=== PATIENT | female | born 1985 | race Caucasian/White ===

== ENCOUNTER 2018-08-10 03:30 | Observation (INO) ==
[2018-08-10] MEDS ORDERED: Naloxone 0.4 MG/ML INJ IVP PRN (05:48)
[2018-08-10] MEDS ORDERED: Acetaminophen 325 MG TABLET PO PRN (06:19)
[2018-08-10 06:23] LABS: Basophils % 0.1 %; Hematocrit 33.4 % (35.3-44.9); Hemoglobin 11.7 g/dL (11.5-15.4); Immature Granulocytes % 0.5 % (0-4); Lymphocytes # 0.4 K/mcL (0.6-4.6); Lymphocytes % 4.3 %; Mean Corpuscular Hemoglobin 32.6 pg (28.0-33.3); Mean Platelet Volume 9.9 fL (9.4-12.4); Monocytes # 0.2 K/mcL (0.0-1.3); Monocytes % 2.4 %; Neutrophils # 8.8 K/mcL (1.6-8.9); Platelet Count 120 K/mcL (140-400); Red Blood Count 3.59 M/mcL (3.82-4.97); Red Cell Distribution Width 12.8 % (11.5-14.5); Segmented Neutrophils % 92.7 %
[2018-08-10] MEDS ORDERED: traMADol 50 MG TABLET PO PRN ×2 (06:31→06:34)
[2018-08-10 06:45] LABS: Alanine Aminotransferase 14 Units/L (7-52); Albumin 3.7 g/dL (3.5-5.7); Albumin/Globulin Ratio 1.3 (1.1-2.2); Alkaline Phosphatase 85 Units/L (34-104); Aspartate Amino Transferase 15 Units/L (13-39); BUN/Creatinine Ratio 9 (6-26); Bilirubin,Total 0.6 mg/dL (0.3-1.0); Blood Urea Nitrogen 6 mg/dL (6-20); Calcium 8.4 mg/dL (8.6-10.3); Carbon Dioxide 18 mEq/L (23-29); Chloride 102 mEq/L (98-107); Globulin 2.9 g/dL (2.4-3.5); Glucose 211 mg/dL (70-105); Osmolality,Calculated 278 (280-300); Potassium 3.5 mEq/L (3.5-5.1); Sodium 132 mEq/L (136-145); Total Protein 6.6 g/dL (6.4-8.9); eGFR For Non-African Americans > 60 (> 60)
[2018-08-10 07:15] LABS: Adenovirus Not Detected (Not Detect); Bordetella Pertussis Not Detected (Not Detect); Chlamydophila pneumoniae Not Detected (Not Detect); Coronavirus 229E Not Detected (Not Detect); Coronavirus HKU1 Not Detected (Not Detect); Coronavirus NL63 Not Detected (Not Detect); Coronavirus OC43 Not Detected (Not Detect); Human Metapneumovirus Not Detected (Not Detect); Human Rhinovirus/Enterovirus Not Detected (Not Detect); Influenza A Subtype 2009 H1 Not Detected (Not Detect); Influenza A Untypeable Not Detected (Not Detect); Influenza B Not Detected (Not Detect); Mycoplasma pneumoniae Not Detected (Not Detect); Parainfluenza Virus 1 Not Detected (Not Detect); Parainfluenza Virus 2 Not Detected (Not Detect); Parainfluenza Virus 3 Not Detected (Not Detect); Parainfluenza Virus 4 Not Detected (Not Detect); Respiratory Syncytial Virus Not Detected (Not Detect)
--- NOTE | 2018-08-10 08:00 | Internal Med History&Physical ---
Date of Encounter: 08/10/18 Time of Encounter: 07:00 Internal Medicine - H&P: HPI Chief complaint: Shortness of breath Admitted From: Home Plans for Post Hospital Care: Home History of present illness: Ms. Melissa is a 33 year old female transferred from [facility] emergency room for shortness of breath. Past medical history is significant for asthma. Patient started to have fever, cough with greenish sputum, headache since 5 days ago. One day before her symptoms, her son was diagnosed as influenza and was treated with Tamiflu. Patient started to take Tamiflu since Saturday by herself. Patient has mild nausea no vomiting. Patient denies runny nose or sore throat. Patient complaint of left side pleural pain worsening on deep breath. Since last night she feels difficulty breathing and was sent to [facility] emergency room. Patient was found T 100.3, HR 103, RR 22, BP 123/67, SpO2 88% in RA. She was treated with DuoNeb, Solu-Medrol, and IV fluid. Chest x-ray in [facility] shows infiltrate. She was given azithromycin 500 mg and Rocephin 1 g. After treatment patient feels better, patient was transferred to our hospital for further management. Labs in [facility]: CBC 10.3/13/37.2/138, BMP 136/3.6/98/31/8/0.86/119, d-dimer 273 (negative), HCG negative, lactate 1.0, ABG 7.45/39/69/94% on 3L NC. Past Med Surg Social Fam HX - Past Medical History Medical history: asthma Psychiatric history: no psych history - Past Surgical History Surgical History: - Social History Smoking Status: Current every day smoker Packs per day: 1 Smokeless Tobacco Status: No Alcohol use: none Drug use: none - Family History Father Name: ailyn Living Status: Age at : 52 Cause of : ME Hx Family Cardiac Disorders: Yes (mi htn) Hx Family Endocrine Disorder: Yes (dm) Internal Medicine - H&P: Meds Famotidine [Pepcid] 20 mg PO DAILY #30 tablet 12/22/17 [Rx] Allergy/AdvReac Type Severity Reaction Status Date / Time Penicillins [PCN] Allergy See Verified 12/22/17 14:26 Comments All Systems PM: A 10-system review of systems was performed and is negative for pertinent findings except as documented above in the HPI. - Constitutional Vitals: Temp Pulse Resp BP Pulse Ox 97.9 F 69 18 115/76 91 08/10/18 07:43 08/10/18 07:43 08/10/18 07:43 08/10/18 07:43 08/10/18 07:43 Exam: Pt is AAO x 3, in NAD HEENT: NC/AT, PERRL Neck: Supple, no JVD, no LAD Lungs: CTA b/l Heart: S1S2, RRR Abd: Soft, nontender, BS present Ext: ROM wnl, no pedal edema Neuro: No focal deficit Internal Med - H&P Results - Labs CBC & Chem 7: 08/10/18 06:10 08/10/18 06:10 Labs: Short CBC 08/10/18 Range/Units 06:10 WBC 9.5 (4.3-11.1) K/mcL Hgb 11.7 (11.5-15.4) g/dL Hct 33.4 L (35.3-44.9) % Plt Count 120 L (140-400) K/mcL Neutrophils # 8.8 (1.6-8.9) K/mcL BMP 08/10/18 06:10 Sodium 132 L Potassium 3.5 Chloride 102 Carbon Dioxide 18 L BUN 6 Creatinine 0.64 Glucose 211 H Calcium 8.4 L Liver Function 08/10/18 Range/Units 06:10 Total Bilirubin 0.6 (0.3-1.0) mg/dL AST 15 (13-39) Units/L ALT 14 (7-52) Units/L Alkaline Phosphatase 85 (34-104) Units/L Albumin 3.7 (3.5-5.7) g/dL - Assessment and plan (1) Community acquired pneumonia Current Visit: Yes Status: Acute Assessment and plan: Patient has a cough with greenish sputum. Has a fever. Chest x-ray in [facility] suspect infiltrate. Patient complaining of left-sided pleural pain worsening on deep breath. D-dimer negative. - Consider community acquired pneumonia. - Continue azithromycin and Rocephin - Cough syrup and symptomatic treatment Qualifiers: Laterality: left Lung location: unspecified part of lung Qualified Code(s): J18.9 - Pneumonia, unspecified organism (2) Asthma exacerbation Current Visit: Yes Status: Acute Assessment and plan: History of asthma. Use abuse for inhaler at home, frequency less than once a week. Worsening shortness of breath with desaturation, improved after Solu- Medrol and DuoNeb. Consider asthma exacerbation - Patient has no wheezing at this point. - Continue DuoNeb scheduled and when necessary - Continue treat underlying pneumonia Qualifiers: Asthma severity: mild Asthma persistence: intermittent Qualified Code(s): J45.21 - Mild intermittent asthma with (acute) exacerbation (3) Influenza Current Visit: Yes Status: Suspected Assessment and plan: Patient's son has influenza diagnosed on Saturday. Patient has symptoms started from Saturday. Patient took Tamiflu for 4 days already. Influenza test negative in our hospital. - We will continue Tamiflu to finish a 5 day course considering patient has influenza contact and respiratory symptoms. (4) DVT prophylaxis Current Visit: Yes Status: Acute Assessment and plan: Patient is young and ambulating well. Denies OCP use. Will hold anticoagulation, encourage ambulation. (5) Hyperglycemia Current Visit: Yes Status: Acute Assessment and plan: Glucose 211, in [facility] 119, no history of diabetes. Possibly cause by Solumendral use in [facility]. (6) Tobacco abuse Current Visit: Yes Status: Acute Assessment and plan: Smoking cessation education. Patient said she does not need nicotine patch (7) Obesity Current Visit: Yes Status: Acute Assessment and plan: Lifestyle modification as outpatient Qualifiers: Obesity type: unspecified obesity type Body mass index: BMI 31.0-31.9 Qualified Code(s): E66.9 - Obesity, unspecified; Z68.31 - Body mass index (BMI) 31.0-31.9, adult - Time Spent With Patient Total time spent is greater than 50% in coordination of care (as documented) at patient's floor/unit and/or counseling patient: 40 minutes Greater than 35 minutes
[2018-08-10] MEDS: Ipratropium/Albuterol Neb 3 ML IH SCH ×5 (08:05→23:28)
[2018-08-10] MEDS ORDERED: Ipratropium/Albuterol Neb 3 ML IH PRN (08:15)
[2018-08-11] MEDS ORDERED: cefTRIAXone 1,000 MG in 0.9 % Sodium Chloride Mini Bag 100 ML IVPB SCH (02:00)
[2018-08-11] MEDS ORDERED: Azithromycin 500 MG in D5% in Water 250 ML IVPB SCH (02:00)
[2018-08-11] MEDS ORDERED: cefTRIAXone 1,000 MG in Water for inj. (sterile) 20 ML 10 ML IVP SCH (02:00)
[2018-08-11] MEDS: Ipratropium/Albuterol Neb 3 ML IH SCH ×3 (03:52→11:22)
[2018-08-11 04:50] LABS: Basophils % 0.1 %; Eosinophils % 0.1 %; Hematocrit 30.7 % (35.3-44.9); Hemoglobin 10.6 g/dL (11.5-15.4); Immature Granulocytes % 0.3 % (0-4); Lymphocytes # 1.9 K/mcL (0.6-4.6); Lymphocytes % 25.9 %; Mean Corpuscular HGB Conc 34.5 g/dL (31.6-35.5); Mean Corpuscular Hemoglobin 32.1 pg (28.0-33.3); Monocytes # 0.6 K/mcL (0.0-1.3); Monocytes % 7.9 %; Neutrophils # 4.7 K/mcL (1.6-8.9); Platelet Count 132 K/mcL (140-400); Segmented Neutrophils % 65.7 %
[2018-08-11 05:04] LABS: BUN/Creatinine Ratio 13 (6-26); Blood Urea Nitrogen 7 mg/dL (6-20); Calcium 8.9 mg/dL (8.6-10.3); Carbon Dioxide 23 mEq/L (23-29); Chloride 106 mEq/L (98-107); Glucose 125 mg/dL (70-105); Magnesium 2.1 mg/dL (1.6-2.6); Osmolality,Calculated 285 (280-300); Potassium 3.5 mEq/L (3.5-5.1); Sodium 138 mEq/L (136-145); eGFR For Non-African Americans > 60 (> 60)
[2018-08-11] MEDS: cefTRIAXone 1,000 MG in Water for inj. (sterile) 20 ML 10 ML IVP SCH ×2 (05:10→08:41)
[2018-08-11 05:26] LABS: Platelet Estimate Slight Decrease (Normal)
[2018-08-11 11:47] VITALS: BP 125/82
--- NOTE | 2018-08-11 13:00 | Discharge Summary ---
- NOTES TO OUTPATIENT PROVIDER Notes to Outpatient Provider: Follow up with PCP in one week. Please quit smoking. Orders not resulted at time of discharge: Pending orders 08/10/18 05:49 Culture,Sputum with Gram Stain [] Routine 08/10/18 06:10 Culture,Blood [] Stat Date of Encounter: 08/11/18 Time of Encounter: 12:55 - Discharge Diagnosis (1) Community acquired pneumonia Priority: Primary Status: Acute Qualifiers: Laterality: left Lung location: unspecified part of lung Qualified Code(s): J18.9 - Pneumonia, unspecified organism (2) Asthma exacerbation Priority: Primary Status: Acute Qualifiers: Asthma severity: mild Asthma persistence: intermittent Qualified Code(s): J45.21 - Mild intermittent asthma with (acute) exacerbation (3) Influenza Priority: Secondary Status: Suspected (4) DVT prophylaxis Priority: Secondary Status: Acute (5) Hyperglycemia Priority: Secondary Status: Acute (6) Tobacco abuse Priority: Secondary Status: Acute (7) Obesity Priority: Secondary Status: Acute Qualifiers: Obesity type: unspecified obesity type Body mass index: BMI 31.0-31.9 Qualified Code(s): E66.9 - Obesity, unspecified; Z68.31 - Body mass index (BMI) 31.0-31.9, adult Hospital course: Ms. Melissa is a 33 year old female chronic tobacco dependence and mild i ntermittent asthma patient presented to [facility] emergency room for shortness of breath, cough with expectoration and flulike symptoms. She did mention her son recently diagnosed with the flu so her primary care doctor placed her on prophylactic Tamiflu since Saturday. Her Chest x-ray in [facility] shows infiltrate. Her repeat chest x-ray here did not show any infiltrates. Her pneumonia mostly bacterial pneumonia. Respiratory viral panel came back is negative. Patient was started on empirical antibiotic, symptomatic and supportive care with bronchodilator therapy. Patient stated she is feeling a lot better today she is breathing comfortably on room air. - Time Spent with Patient Total time spent providing and/or coordinating discharge services: - Discharge Medications Prescriptions: Albuterol Sulfate [Albuterol Inhaler] 2 puff IH Q6HR PRN #1 [id number].[email or web address] PRN Reason: Wheezing GuaiFENesin ER [Mucinex] 600 mg PO BID #30 tbbp.12hr Levofloxacin [Levaquin] 750 mg PO DAILY #3 tablet Nicotine Patch [Nicoderm] 21 mg TD DAILY #30 patch.td24 Home Medications: Famotidine [Pepcid] 20 mg PO DAILY #30 tablet 12/22/17 [Rx] Albuterol Sulfate [Albuterol Inhaler] 2 puff IH Q6HR PRN #1 hfa.[email or web address] 08/11/18 [Rx] GuaiFENesin ER [Mucinex] 600 mg PO BID #30 tbbp.12hr 08/11/18 [Rx] Levofloxacin [Levaquin] 750 mg PO DAILY #3 tablet 08/11/18 [Rx] Nicotine Patch [Nicoderm] 21 mg TD DAILY #30 patch.td24 08/11/18 [Rx] Allergies/Adverse Reactions: Allergy/AdvReac Type Severity Reaction Status Date / Time Penicillins [PCN] Allergy See Verified 12/22/17 14:26 Comments Date of admission: 08/10/18 05:35 Primary care physician: PCP NONE - Constitutional Vitals: Temp Pulse Resp BP Pulse Ox 97.5 F L 75 19 125/82 95 08/11/18 11:00 08/11/18 11:00 08/11/18 11:00 08/11/18 11:00 08/11/18 11:00 General appearance: Present: A&O X 3, no acute distress, answers questions appropriately Exam: Gen: Alert, awake, Oriented to time,place and person Chest: Diminished breath sounds B/L, No wheezing, No crackles, No rales Heart: S1S2+ RRR No murmurs Abd: Soft, NT, BS +, No organomegaly Ext: No edema, pulses are palpable, No calf tenderness Neuro : Benign findings Skin: No rash. - Patient Status Disposition: Home, Self-Care Condition: Good Overall status at discharge: patient is back to baseline - Discharge Instructions Follow Up With: NONE,PCP [Primary Care Provider] - - Diet and Activity Activity: increase activity as tolerated Diet: advance to your usual diet
[2018-08-12] MEDS ORDERED: Famotidine 20 MG TABLET PO SCH (09:00)
== END 2018-08-11 14:02 | disposition home or self-care (01) ==
LOC: 3BNU → SUATTDRO 05:35
PROVIDERS: ADMIT Internal Medicine; ATTEND Family Medicine